=== PATIENT | female | born 1940 | race Caucasian/White ===

== ENCOUNTER 2018-03-19 04:48 | Inpatient (IN) | payer OTHER ==
[~2018-03-19] VITALS: Ht 167.6 cm; Wt 41.5 kg
[2018-03-19 04:58] VITALS: Ht 167.6 cm; Wt 41.5 kg
[2018-03-19] MEDS ORDERED: RANEXA500 M2 PO (05:41)
[2018-03-19] MEDS ORDERED: COR6 PO (05:42)
[2018-03-19] MEDS ORDERED: LIPITOR40 MG PO (05:43)
[2018-03-19] MEDS ORDERED: ALPRAZOLAM0.25 MG PO (05:43)
[2018-03-19] MEDS ORDERED: ISOSORBIDE MONO60 MG PO (05:43)
[2018-03-19] MEDS ORDERED: PANTOPRAZOLE SO40 M1 PO (05:43)
[2018-03-19] MEDS ORDERED: PROA PO ×2 (05:46→07:51)
[2018-03-19] MEDS ORDERED: LISINOPRIL2.5 MG PO (05:46)
[2018-03-19] MEDS ORDERED: ALDACTONE25 MG PO (05:47)
[2018-03-19 06:21] LABS: BASOPHIL % 0.2 % (0-2); PLATELET COUNT 200 x10^3mcL (130-400); RED CELL DISTRIBUTION WIDTH 13.3 % (11.5-14.5)
[2018-03-19 06:22] LABS: CALCIUM 9.8 mg/dL (8.5-10.1); CARBON DIOXIDE 26.4 mmol/L (21-32); CHLORIDE SERUM 105 mmol/L (98-107); CREATININE SERUM 1.4 mg/dL (0.6-1.0); GLUCOSE SERUM 90 mg/dL (74-106); POTASSIUM SERUM 5.1 mmol/L (3.5-5.1); SODIUM SERUM 141 mmol/L (136-145)
[2018-03-19 06:27] LABS: ALBUMIN 3.7 g/dL (3.4-5.0); ALKALINE PHOSPHATASE 111 U/L (46-116); ALT/SGPT 28 U/L (14-59); AST/SGOT 30 U/L (15-37); BILIRUBIN TOTAL 0.52 mg/dL (0.20-1.00); TOTAL PROTEIN, SERUM 7.3 g/dL (6.4-8.2)
[2018-03-19 08:37] LABS: UA SPECIFIC GRAVITY <=1.005 (1.005-1.035); microscopic required? YES; urine erythrocyte NEGATIVE (NEGATIVE)
[2018-03-19 08:45] VITALS: BP 115/64
[2018-03-19 09:53] LABS: T3 TOTAL 0.99 ng/mL
[2018-03-19 09:54] LABS: CHOLESTEROL/HDL RATIO 2.6; MAGNESIUM 1.8 mg/dL (1.8-2.4); PHOSPHOROUS 4.5 mg/dL (2.5-4.9)
[2018-03-19 09:55] LABS: FREE T4 0.95 ng/dL (0.76-1.46); T4(THYROXINE) 8.8 ug/dL (4.7-13.3)
[2018-03-19 11:47] VITALS: BP 115/64
[2018-03-19 11:56] VITALS: BP 109/42
[2018-03-19 18:14] VITALS: BP 112/50
[2018-03-19] MEDS ORDERED: [UNRECOGNIZED DRUG - CODE] IV (19:37)
[2018-03-19] MEDS ORDERED: LAC PO (19:38)
[2018-03-19 19:43] VITALS: BP 112/50
== END 2018-03-19 20:46 | disposition short-term general hospital (02) | DRG 913 ==
LOC: ED 04:48 → DU 07:37
PROVIDERS: Emergency Medicine; Family Medicine
DX: S09.90XA Unspecified injury of head, initial encounter (principal); N17.0 Acute kidney failure with tubular necrosis; G93.41 Metabolic encephalopathy; N39.0 Urinary tract infection, site not specified; Z68.1 Body mass index [BMI] 19.9 or less, adult; M47.892 Other spondylosis, cervical region; M50.221 Other cervical disc displacement at C4-C5 level; M16.0 Bilateral primary osteoarthritis of hip; G93.89 Other specified disorders of brain; I25.10 Atherosclerotic heart disease of native coronary artery without angina pectoris; Z95.1 Presence of aortocoronary bypass graft; Z87.891 Personal history of nicotine dependence; Z93.6 Other artificial openings of urinary tract status; W18.30XA Fall on same level, unspecified, initial encounter; Y93.89 Activity, other specified; Y92.012 Bathroom of single-family (private) house as the place of occurrence of the external cause
CPT/HCPCS: 83880; 84439; C9113; J0696; J1885; J2270; J2405; J7030; J7060; Q0092